=== PATIENT | female | born 1950 | race Caucasian/White ===

== ENCOUNTER 2020-06-24 19:27 | Inpatient (IN) | payer MEDICARE, BC ==
[~2020-06-24] VITALS: Ht 160 cm; Wt 60.0 kg
--- NOTE | 2020-06-24 19:35 | NUR ---
MDat bedside of MSE
--- NOTE | 2020-06-24 19:39 | NUR ---
EKG done at this time
[2020-06-24] MEDS ORDERED: IRBE150T28 PO ×2 (19:51)
[2020-06-24] MEDS ORDERED: OLAN7.5T3 PO (19:51)
[2020-06-24] MEDS ORDERED: MAG30ORA PO (19:51)
[2020-06-24] MEDS ORDERED: ENOX40DI SQ (19:51)
[2020-06-24] MEDS ORDERED: ACET-2154 PO (19:51)
[2020-06-24] MEDS ORDERED: CYAN100T44 PO (19:51)
[2020-06-24] MEDS ORDERED: NITR0.4T48 SL (19:51)
[2020-06-24] MEDS ORDERED: NIFE-35 PO (19:51)
[2020-06-24] MEDS ORDERED: ASPI-605 PO (19:51)
[2020-06-24] MEDS ORDERED: ATOR40TA PO (19:51)
[2020-06-24] MEDS ORDERED: HALO100A2 IM (19:51)
[2020-06-24] MEDS ORDERED: ZOLP12.542 PO (19:51)
[2020-06-24] MEDS ORDERED: LURA40TA PO (19:51)
[2020-06-24] MEDS ORDERED: METO25TA6 PO (19:51)
[2020-06-24] MEDS ORDERED: ASPIRIN 81 MG TAB.CHEW PO ONE (20:15)
[2020-06-24] MEDS ORDERED: ASPIRIN EC 81 MG TABLET.DR PO ONE (20:15)
[2020-06-24] MEDS ORDERED: NITROGLYCERIN 0.4 MG/TAB BOTTLE SL ONE ×2 (20:15→20:16)
[2020-06-24 20:16] LABS: *BILIRUBIN,URIN NEGATIVE (NEGATIVE); *BLOOD, URINE NEGATIVE (NEGATIVE); *CLARITY,URINE CLEAR (CLEAR); *COLOR,URINE YELLOW (YELLOW); *KETONES,URINE NEGATIVE (NEGATIVE); *UROBILINOGEN,URINE 0.2 E.U./dl (NORMAL); LEUKOCYTE ESTERASE ,URINE 2+ (NEGATIVE); NITRITE, URINE NEGATIVE (NEGATIVE); UGLUCOSE NEGATIVE (NEGATIVE)
--- NOTE | 2020-06-24 20:26 | NUR ---
Blood draw at this time, 22g IV placed in left wrist, urine collected and sent to lab, no signs of distress noted from patient, patient confirms chest pain, aspirin and Nitro given per MD orders
[2020-06-24 20:33] LABS: BASOPHILS % (AUTO) 0.3 % (0.0-2.0); EOSINOPHILS % (AUTO) 0.5 % (0.0-7.0); HEMATOCRIT 32.2 % (31.2-41.9); HEMOGLOBIN 10.8 g/dL (10.9-14.3); LYMPHOCYTES % (AUTO) 32.4 % (20.5-51.5); MEAN CORPUSCULAR HEMOGLOBIN 29.6 uug (24.7-32.8); MEAN CORPUSCULAR HGB CONC 34 g/dL (32.3-35.6); MEAN CORPUSCULAR VOLUME 88.2 fL (75.5-95.3); MONOCYTES # (AUTO) 0.6 K/uL (2.0-10.0); MONOCYTES % (AUTO) 9.8 % (0.0-11.0); NEUTROPHILS # (AUTO) 3.6 K/uL (1.8-8.9); PLATELET COUNT (AUTO) 236 K/uL (179-408); RED BLOOD CELL COUNT(AUTO) 3.65 MIL/uL (3.63-4.92); WHITE BLOOD COUNT (AUTO) 6.3 K/uL (3.8-11.8)
--- NOTE | 2020-06-24 20:33 | NUR ---
patient complaints of chest pain 8/10, no signs of distress noted, vitals WNL
--- NOTE | 2020-06-24 20:35 | NUR ---
patient states chest pain is 6/10 at this time, x2 sublingual Nitros given in total
[2020-06-24 20:42] LABS: CREATININE 0.9 mg/dL (0.6-1.3); POTASSIUM 3.7 mmol/L (3.5-5.1)
--- NOTE | 2020-06-24 20:46 | NUR ---
states pain level is at a 5/10, repeat EKG done at this time
[2020-06-24] MEDS ORDERED: NITROGLYCERIN OINT 1 GM PACKET TP ONE ×2 (20:51→21:00)
[2020-06-24 20:55] LABS: BILIRUBIN,DIRECT 0.2 mg/dL (0.0-0.2); BILIRUBIN,TOTAL 0.5 mg/dL (0.2-1.0); TOTAL PROTEIN, SERUM 6.7 g/dL (6.4-8.2)
--- NOTE | 2020-06-24 20:59 | NUR ---
x3 nitro sublingal given per MD orders, patient noted periodically rinsing mouth with water and spitting into belonging bag, rates current chest pain level 5/10
[2020-06-24 22:00] LABS: BACTERIA,URINE FEW /HPF (NONE SEEN); RBC,URINE 0-3 /HPF (0-3); SQUAMOUS EPITHELIAL CELL,UR FEW /HPF (NONE SEEN); WBC,URINE 20-50 /HPF (0-3)
[2020-06-24 22:18] VITALS: BP 139/71
--- NOTE | 2020-06-24 22:20 | NUR ---
Pt. admitted to Telemetry , under care of Dr.m Vsáquez Belongs List completed and all belongings sent with patient [address]
--- NOTE | 2020-06-24 22:21 | NUR ---
RECEIVED PT FROM ER VIA [facility]. UNDER THE CARE OF DR. LINDSAY. 1:1 SITTER FOR SAFETY. PT ON 5150. ADMISSION PROCESS AND CARE PLAN INITIATED. HALF-WAY ASSESSMENT DONE. PT SKIN ISSUES PUT ON THE SKIN ASSESSMENT. SAFETY AND COMFORT PROVIDED. WILL CONTINUE TO MONITOR.
--- NOTE | 2020-06-24 23:25 | NUR ---
P/C PLACED TO NOTIFY DR. Lonnie LINDSAY,REGARDING ADMISSION ORDERS FOR PT.,
[2020-06-24] MEDS ORDERED: HYDROCODONE/APAP 5-325MG TABLET PO PRN (23:30)
[2020-06-24] MEDS ORDERED: ONDANSETRON 4 MG/2 ML VIAL IV PRN (23:30)
[2020-06-24] MEDS ORDERED: Medication Not On Formulary EA (Zolpidem Tartrate 12.5 MG) PO PRN (23:30)
[2020-06-24] MEDS ORDERED: NITROGLYCERIN 0.4 MG/TAB BOTTLE SL PRN (23:30)
[2020-06-24] MEDS ORDERED: MAGNESIUM HYDROXIDE 30 ML LIQUID UDC PO PRN (23:30)
[2020-06-24] MEDS ORDERED: ZOLPIDEM 5 MG TABLET PO PRN (23:30)
[2020-06-24] MEDS ORDERED: Z GUARD REMEDY PASTE 57 GM TUBE TOP PRN (23:30)
[2020-06-24] MEDS ORDERED: ACETAMINOPHEN 325 MG TABLET PO PRN ×2 (23:30)
[2020-06-24] MEDS ORDERED: MAG HYDROX/AL HYDROX/SIMETH 30 ML LIQUID UDC PO PRN (23:30)
[2020-06-25] MEDS: IV 1/2NS 1000 ML 1,000 ML IV PRN ×2 (00:30→14:42)
[2020-06-25] MEDS ORDERED: CEFTRIAXONE /D5W 50ML IVPB **ER PYXIS IV ONE (00:34)
[2020-06-25] MEDS ORDERED: CEFTRIAXONE 1 G in IV DEXTROSE 5% 50 ML IV SCH (01:00)
[2020-06-25 04:00] VITALS: BP 113/57
[2020-06-25 06:20] LABS: BASOPHILS % (AUTO) 0.2 % (0.0-2.0); EOSINOPHILS % (AUTO) 0.4 % (0.0-7.0); HEMATOCRIT 29.7 % (31.2-41.9); HEMOGLOBIN 10.1 g/dL (10.9-14.3); LYMPHOCYTES # (AUTO) 1.6 K/uL (20.0-40.0); LYMPHOCYTES % (AUTO) 27.5 % (20.5-51.5); MEAN CORPUSCULAR HEMOGLOBIN 29.8 uug (24.7-32.8); MEAN CORPUSCULAR HGB CONC 34 g/dL (32.3-35.6); MEAN CORPUSCULAR VOLUME 87.4 fL (75.5-95.3); MONOCYTES # (AUTO) 0.4 K/uL (2.0-10.0); MONOCYTES % (AUTO) 7.2 % (0.0-11.0); NEUTROPHILS # (AUTO) 3.7 K/uL (1.8-8.9); NEUTROPHILS % (AUTO) 64.7 % (38.5-71.5); PLATELET COUNT (AUTO) 231 K/uL (179-408); WHITE BLOOD COUNT (AUTO) 5.7 K/uL (3.8-11.8)
--- NOTE | 2020-06-25 06:22 | NUR ---
PT SLEPT 1H 45 MINUTES. PT CONFUSED. PT ASKING FOR HER PURSE WHICH IS NOT ON HER BELONGING LIST. PT STATING SHE'S IN [facility]. REORIENTATION NEEDED FOR THE PT. SITTER AT BEDSIDE FOR SAFETY. PRESCRIBED MEDICATION GIVEN AND PT TOLERATED IT WELL. PT GIVEN [place] PR[place] 0102H [place] 0219H PER DR PRESCRIBED. PT HAVING EPISODE OF HEADACHE.PT TOLERATED IT WELL. SAFETY AND COMFORT PROVIDED. ALL NEEDS ARE MET. WILL ENDORSE TO INCOMING NURSE.
[2020-06-25 06:40] LABS: BILIRUBIN,TOTAL 0.4 mg/dL (0.2-1.0); CREATININE 0.9 mg/dL (0.6-1.3); MAGNESIUM 1.9 mg/dL (1.8-2.4); PHOSPHOROUS 4.2 mg/dL (2.5-4.9); POTASSIUM 3.5 mmol/L (3.5-5.1)
--- NOTE | 2020-06-25 07:45 | NUR ---
Received patient resting in bed. No sign of respiratory distress noted at this time, patient is saturating well on room air. Patient on 5150 hold with a 1:[address] IV is left wrist 22 gauge IV that is patent and intact. Safety precautions in place, bed in lowest position, and locked with alarm activated. Patient call light and personal belongings are within reach. Will continue to monitor and observe.
[2020-06-25 08:16] VITALS: BP 126/58
[2020-06-25] MEDS: OLANZAPINE 5 MG TABLET PO SCH ×2 (08:16→09:14)
--- NOTE | 2020-06-25 08:20 | NUR ---
Patient refused all medications, she says they are not the ones she takes and that they are making her weak.
[2020-06-25] MEDS ORDERED: POTASSIUM CHLORIDE 20 MEQ POWDER PACKET PO ONE (08:30)
[2020-06-25] MEDS ORDERED: LOSARTAN POTASSIUM 25 MG TABLET PO SCH (09:00)
[2020-06-25] MEDS ORDERED: NIFEdipine XL 30 MG TABSR PO SCH ×2 (09:00)
[2020-06-25] MEDS ORDERED: ASPIRIN EC 81 MG TABLET.DR PO SCH (09:00)
[2020-06-25] MEDS ORDERED: ENOXAPARIN SODIUM 40 MG/0.4 ML DISP.SYRIN SQ SCH (09:00)
[2020-06-25] MEDS ORDERED: CYANOCOBALAMIN 100 MCG TABLET PO SCH (09:00)
[2020-06-25] MEDS ORDERED: ISOSORBIDE MONONITRATE 30 MG TAB.SR.24H PO SCH (09:00)
[2020-06-25] MEDS ORDERED: METOPROLOL TARTRATE 25 MG TABLET PO SCH (09:00)
[2020-06-25] MEDS ORDERED: Medication Not On Formulary EA (Irbesartan (Avapro) 75 MG) PO SCH (09:00)
[2020-06-25] MEDS: METOPROLOL TARTRATE 25 MG TABLET PO SCH ×2 (09:14→17:19)
[2020-06-25 11:56] VITALS: BP 103/50
[2020-06-25] MEDS ORDERED: SULFAMETH/TRIMETH 800/160 MG TABLET PO SCH (12:45)
[2020-06-25] MEDS ORDERED: ENOX40DI SQ (15:20)
[2020-06-25] MEDS ORDERED: CYAN100T44 PO (15:20)
[2020-06-25] MEDS ORDERED: NIFE30TA2 PO (15:20)
[2020-06-25] MEDS ORDERED: ATOR40TA PO (15:20)
[2020-06-25] MEDS ORDERED: Nitroglycerin Sl SL (15:20)
[2020-06-25] MEDS ORDERED: METO25TA6 PO (15:20)
[2020-06-25] MEDS ORDERED: OLAN5TAB3 PO (15:20)
[2020-06-25] MEDS ORDERED: Isosorbide Mononitrate PO (15:20)
[2020-06-25] MEDS ORDERED: Sulfameth/Trimeth 800/160 Mg PO (15:20)
[2020-06-25] MEDS ORDERED: ASPI-618 PO (15:20)
[2020-06-25] MEDS ORDERED: LURASIDONE HCL PO (15:20)
[2020-06-25 15:56] VITALS: BP 100/46
[2020-06-25 17:19] VITALS: BP 109/60
--- NOTE | 2020-06-25 18:24 | NUR ---
Patient discharge and is prepared and ready to be transferred to the MHU. Patient is in stable condition and resting comfortably in bed. She is saturating well on room air. Tele monitoring has been discontinued. Patient has IV in the left wrist 20 gauge that is intact and patent running 1/2 NS at 75 ml/hr. safety precautions still in place bed in the lowest position and locked with alarm activated. She also has a 1:1n sitter. Call light and belongings are all within reach. Will continue to monitor until turned over to the oncoming nurse.
--- NOTE | 2020-06-25 18:48 | NUR ---
Called to give report to MHU but was told that patient will be admitted to MS 3rd floor as over flow GPS. Will relay findings in change of shift report to oncoming nurse.
[2020-06-25] MEDS ORDERED: ATORVASTATIN 40 MG TABLET PO SCH (21:00)
[2020-06-26] MEDS ORDERED: HYDR-4384 PO (07:15)
[2020-06-26] MEDS ORDERED: SULF1TAB48 PO (07:15)
[2020-06-26] MEDS ORDERED: NITR0.4T SL (07:50)
[2020-06-26] MEDS ORDERED: ISOS30TA6 PO (07:50)
== END 2020-06-25 20:00 | DRG 313 ==
LOC: ER 19:27 → TELE3 21:59 → MEDSURG3 06-25 19:52
PROVIDERS: ADMIT Nurse Practitioner Acute Care; ATTEND Nurse Practitioner Acute Care
DX: R07.89 Other chest pain (principal); N39.0 Urinary tract infection, site not specified; I25.10 Atherosclerotic heart disease of native coronary artery without angina pectoris; E78.5 Hyperlipidemia, unspecified; E11.9 Type 2 diabetes mellitus without complications; Z79.899 Other long term (current) drug therapy; F31.9 Bipolar disorder, unspecified; D64.9 Anemia, unspecified; Z73.6 Limitation of activities due to disability; I10 Essential (primary) hypertension; F20.9 Schizophrenia, unspecified
CPT/HCPCS: 36415; 70030-TC; 71045; 83735; 84100; 85025; 85730; 87086; 93005; 93307; A4663; G0378; J0696; J1650; J3490; J7060

== ENCOUNTER 2020-06-25 20:44 | Inpatient (IN) | payer MEDICARE, BC ==
[~2020-06-25] VITALS: Ht 160 cm; Wt 58.1 kg
[~2020-06-25 20:44] MED LIST: ACET-2154 PO; ASPI-605 PO; ASPI-618 PO; ATOR40TA PO; CYAN100T44 PO; ENOX40DI SQ; HALO100A2 IM; IRBE150T28 PO; Isosorbide Mononitrate PO; LURA40TA PO; LURASIDONE HCL PO; MAG30ORA PO; METO25TA6 PO; NIFE-35 PO; NIFE30TA2 PO; NITR0.4T48 SL; Nitroglycerin Sl SL; OLAN5TAB3 PO; OLAN7.5T3 PO; Sulfameth/Trimeth 800/160 Mg PO; ZOLP12.542 PO
[2020-06-25] MEDS ORDERED: MAGNESIUM HYDROXIDE 30 ML LIQUID UDC PO PRN (21:30)
[2020-06-25] MEDS ORDERED: MAG HYDROX/AL HYDROX/SIMETH 30 ML LIQUID UDC PO PRN (21:30)
[2020-06-25] MEDS ORDERED: ACETAMINOPHEN 325 MG TABLET PO PRN (21:30)
[2020-06-25 22:07] VITALS: BP 107/49
--- NOTE | 2020-06-26 01:06 | NUR ---
Received pt resting in bed. AAO x2-3. No acute distress noted. Denies pain/ discomfort. Denies SI/HI. Dr. Palafox seen pt. 1:1 sitter at bedside. Safety measures maintained. Call light and personal items within reach. Will continue to monitor.
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
[2020-06-26 07:11] LABS: BILIRUBIN,TOTAL 0.5 mg/dL (0.2-1.0); CREATININE 1.1 mg/dL (0.6-1.3); POTASSIUM 4.6 mmol/L (3.5-5.1); TOTAL PROTEIN, SERUM 6.4 g/dL (6.4-8.2)
[2020-06-26] MEDS ORDERED: HYDR-4384 PO (07:15)
[2020-06-26] MEDS ORDERED: SULF1TAB48 PO (07:15)
[2020-06-26] MEDS ORDERED: ISOS30TA6 PO (07:50)
[2020-06-26] MEDS ORDERED: NITR0.4T SL (07:50)
[2020-06-26 08:00] VITALS: BP 134/65
--- NOTE | 2020-06-26 08:00 | NUR ---
Received patient resting in bed. No sign of respiratory distress noted, patient is saturating well on room air. n IV in left wrist, intact and patent. Patient is awake, alert and oriented time 1-2. Patient is now admitted to GPS Psych overflow. Patient on a 5150 hold and as been renewed. Patient has a 1:1 sitter. Safety precautions are in place. Will continue to monitor and observe.
[2020-06-26] MEDS: risperiDONE 1 MG TABLET PO SCH ×2 (08:08→20:33)
--- NOTE | 2020-06-26 08:30 | NUR ---
Patient refused risperidone, says "she will not take any psych meds. made aware.
[2020-06-26] MEDS ORDERED: LURASIDONE HCL PO SCH (09:00)
[2020-06-26] MEDS ORDERED: NITROGLYCERIN 0.4 MG/TAB BOTTLE SL PRN (09:00)
[2020-06-26] MEDS ORDERED: OLANZAPINE 5 MG TABLET PO SCH (09:00)
[2020-06-26] MEDS ORDERED: HYDROCODONE/APAP 5-325MG TABLET PO PRN (09:00)
[2020-06-26] MEDS: CYANOCOBALAMIN 100 MCG TABLET PO SCH (09:50)
[2020-06-26] MEDS: SULFAMETH/TRIMETH 800/160 MG TABLET PO SCH ×2 (09:51→20:29)
[2020-06-26] MEDS: ASPIRIN EC 81 MG TABLET.DR PO SCH (09:51)
[2020-06-26] MEDS: NIFEdipine XL 30 MG TABSR PO SCH (09:52)
[2020-06-26] MEDS: METOPROLOL TARTRATE 25 MG TABLET PO SCH ×2 (09:53→20:29)
[2020-06-26] MEDS: ISOSORBIDE MONONITRATE 30 MG TAB.SR.24H PO SCH (09:54)
[2020-06-26] MEDS: ENOXAPARIN SODIUM 40 MG/0.4 ML DISP.SYRIN SQ SCH (09:55)
--- NOTE | 2020-06-26 10:28 | NUR ---
Social Work Family Contact: electrical linesworker spoke with patient's Wili ([phone]) and is involved in patient's care. Per , he stated that he is the DPOA and will fax documents once he is in town. This technical document writer discussed treatment plan and discharge plan.
--- NOTE | 2020-06-26 10:28 | NUR ---
Social Work Initial Discharge Plan: Patient currently resides at [address] [facility] [address], [place] [address]; ([phone]) who lives with Wili ([phone]) and is involved in patient's care. Per , he stated that he is the DPOA and will send this film writer documents. Per , he would want patient back home. food counter worker will work with the MD and treatment team to coordinatre proper discharge plan.
--- NOTE | 2020-06-26 10:32 | NUR ---
Social Work Firearms Report: Supervisor Covering And Lining completed and submitted a [employer] firearms report for 5150 grave disability certification. A copy of report has been placed in patient chart.
[2020-06-26 12:13] VITALS: BP 119/75
[2020-06-26 16:00] VITALS: BP 125/68
--- NOTE | 2020-06-26 18:11 | NUR ---
Patient is resting in bed, no sign of distress noted. patient saturating well on room air. All medications given as ordered except for Psych medication refused by patient. Patient is still on 5150 an has a 1:1 sitter. IV is still in left wrist 22 gauge. Safety precautions in place. Will endorse patient over to oncoming nurse
--- NOTE | 2020-06-26 19:30 | NUR ---
RECEIVED PT IN NO ACUTE DISTRESS. SITTER AT BEDSIDE FOR SAFETY. PT PLEASANT WHEN APPROACHED. PT KEEP ON CALLING HER SON ON THE PHONE. SAFETY AND COMFORT PROVIDED. WILL CONTINUE TO MONITOR.
[2020-06-26 20:00] VITALS: BP 134/56
[2020-06-26] MEDS: ATORVASTATIN 40 MG TABLET PO SCH (20:29)
--- NOTE | 2020-06-26 22:36 | NUR ---
PT REFUSED TO TAKE HIS RISPERDAL MEDICATION. DR. CEDILLO SEEN THE PT AND AWARE OF THE PT NOT TAKING HER PSYCH MEDS.
[2020-06-26] MEDS: TEMAZEPAM 7.5 MG CAPSULE PO PRN (22:41)
--- NOTE | 2020-06-26 22:51 | NUR ---
WHEN I WAS GOING TO GIVE HER SLEEPING MEDICATION SHE REFUSED IT SAYING SHE ONLY TAKE AMBIEN MEDICATION. RESTORIL MEDICATION WASTED IN PYXIS WITH ANOTHER RN WITNESS.
--- NOTE | 2020-06-27 06:23 | NUR ---
PT SLEPT 5 HOURS. SITTER AT BEDSIDE FOR SAFETY. PT REFUSED HER RISPERDAL. DR. CEDILLO AWARE. . DR GINI LANDIN FOR THE PT. PT REFUSED HER SLEEPING MEDICATION. SHE SAID SHE IS ONLY TAKING AMBIEN. PRESCRIBED MEDICATION GIVEN AND PT TOLERATED IT WELL. SAFETY AND COMFORT PROVIDED. WILL ENDORSE TO INCOMING NURSE FOR CONTINUITY OF CARE.
[2020-06-27 07:19] VITALS: BP 100/67
--- NOTE | 2020-06-27 08:00 | NUR ---
received pt. resting in bed alert oriented x2. pt. denies pain/ discomfort. pt. denies sob/ difficulty breathing. pt. on 5250 hold 1:1 sitter at bedside. safety measures in place. will continue to monitor pt.
[2020-06-27] MEDS: risperiDONE 1 MG TABLET PO SCH ×2 (09:00→20:41)
[2020-06-27] MEDS: NIFEdipine XL 30 MG TABSR PO SCH (09:00)
[2020-06-27] MEDS: SULFAMETH/TRIMETH 800/160 MG TABLET PO SCH ×2 (09:00→20:40)
[2020-06-27] MEDS: ASPIRIN EC 81 MG TABLET.DR PO SCH (09:00)
[2020-06-27] MEDS: CYANOCOBALAMIN 100 MCG TABLET PO SCH (09:00)
[2020-06-27] MEDS: ISOSORBIDE MONONITRATE 30 MG TAB.SR.24H PO SCH (09:00)
[2020-06-27] MEDS: METOPROLOL TARTRATE 25 MG TABLET PO SCH ×2 (09:01→20:41)
[2020-06-27] MEDS: ENOXAPARIN SODIUM 40 MG/0.4 ML DISP.SYRIN SQ SCH (09:01)
--- NOTE | 2020-06-27 09:17 | NUR ---
pt. refused risperidone AM medication. Educated pt. on risks and benefits pt. still refused.
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
[2020-06-27 14:00] VITALS: BP 98/55
--- NOTE | 2020-06-27 14:15 | NUR ---
Social Work Family Contact: telecommunications linesworker spoke with patient's Wili ([phone]) who stated that patient has been calling and stating that she is at the hospital to get a mammogram. Per , he stated that he is the DPOA. Patient's son Shaun ([phone]) sent this telegraphic typewriter operator chief DPOA documents. This telegraphic typewriter operator chief placed in the chart. Per Hushand and son, they will notify this telegraphic typewriter operator chief if patient will return back home or will require a SNF. This telegraphic typewriter operator chief will follow-up.
--- NOTE | 2020-06-27 15:09 | NUR ---
Social Work Coordination of Care: back up worker spoke with patient's son Shaun ([phone]) and Leonardo ([phone]) DPOA stated that they would want pt to transition to a alf facility upon discharge. This scientific writer faxed Richard from [facility] to review patient's clinicals.
--- NOTE | 2020-06-27 18:24 | NUR ---
pt. took all medication today besides psych medication risperidone and refuses PRN ativan. pt. had some episodes of agitation reoriented pt. and calmed pt. down. safety measures in place. 1:1 sitter for safety. will endorse to pm nurse
--- NOTE | 2020-06-27 19:30 | NUR ---
RECEIVED PT AWAKE, ALERT AND ORIENTEDX3. PLEASANT WHEN APPROACHED. SITTER AT BEDSIDE FOR SAFETY. PT IN NO ACUTE DISTRESS. SAFETY AND COMFORT PROVIDED. WILL CONTINUE TO MONITOR.
[2020-06-27 20:12] VITALS: BP 96/56
[2020-06-27] MEDS: ATORVASTATIN 40 MG TABLET PO SCH (20:41)
--- NOTE | 2020-06-27 20:48 | NUR ---
PT REFUSED HER RISPERDAL MEDICATION. NON-ADMINISTERED METROPOLOL BECAUSE OF BLOOD PRESSURE OF 96/56 . WILL CONTINUE TO MONITOR.
[2020-06-27] MEDS: TEMAZEPAM 7.5 MG CAPSULE PO PRN (21:48)
--- NOTE | 2020-06-28 06:20 | NUR ---
PT SLEPT 5 HOURS AND 30 MINUTES. SITTER FOR SAFETY. PRESCRIBED MEDICATION GIVEN AND PT TOLERATED IT WELL. SAFETY AND COMFORT PROVIDED. DR. CEDILLO SEEN THE PT. PT PARANOID AND DELUSIONAL. NEEDS REORIENTATION. PT REFUSED HER RISPERDAL. DR AWARE. ALL NEEDS ARE MET. WILL ENDORSE TO INCOMING NURSE FOR CONTINUITY OF CARE.
[2020-06-28 07:25] VITALS: BP 123/57
[2020-06-28] MEDS: risperiDONE 1 MG TABLET PO SCH ×2 (09:00→20:05)
[2020-06-28] MEDS: CYANOCOBALAMIN 100 MCG TABLET PO SCH (09:16)
[2020-06-28] MEDS: SULFAMETH/TRIMETH 800/160 MG TABLET PO SCH ×2 (09:16→20:08)
[2020-06-28] MEDS: ISOSORBIDE MONONITRATE 30 MG TAB.SR.24H PO SCH (09:17)
[2020-06-28] MEDS: ASPIRIN EC 81 MG TABLET.DR PO SCH (09:17)
[2020-06-28] MEDS: NIFEdipine XL 30 MG TABSR PO SCH (09:17)
[2020-06-28] MEDS: METOPROLOL TARTRATE 25 MG TABLET PO SCH ×2 (09:18→20:05)
[2020-06-28] MEDS: ENOXAPARIN SODIUM 40 MG/0.4 ML DISP.SYRIN SQ SCH (09:19)
--- NOTE | 2020-06-28 10:00 | NUR ---
Pt received this am.Pt remains awake,alert.Sitter 1:1 for safety at bedside.Pt refused risperdal medication Pt was educated on risks and benefits of medication.Still refusing.Will continue to monitor.
--- NOTE | 2020-06-28 13:11 | NUR ---
Social Work Family Contact: travelers' aid worker spoke with Patient's son Shaun ([phone]) and JAZ ananth Wili ([phone]) agreed with SNF and that he is accepted at [facility].
[2020-06-28 15:53] VITALS: BP 99/58
--- NOTE | 2020-06-28 16:06 | NUR ---
Called ,left message regarding pt had Riese hearing today.Updated on pt condition.
[2020-06-28 19:37] VITALS: BP 99/57
[2020-06-28] MEDS: ATORVASTATIN 40 MG TABLET PO SCH (20:08)
--- NOTE | 2020-06-28 20:15 | NUR ---
RECEIVED PATIENT AWAKE IN BED. A/O X3. HYPERVERBAL. DENIES ANY PAIN OR DISCOMFORT. VSS. PATIENT COMPLIANT WITH TAKING HS MEDS, BUT REFUSED TO TAKE PO RISPERDAL. WAITING FOR DR. CEDILLO. PROVIDED SAFE AND THERAPEUTIC ENVIRONMENT. ALL NEEDS ATTENDED. 1:1 SITTER/NURSE AT BEDSIDE.
[2020-06-28] MEDS ORDERED: HALOPERIDOL 1 MG TABLET PO ONE (21:58)
--- NOTE | 2020-06-28 22:00 | NUR ---
DR. CEDILLO CAME TO SEE PATIENT AND EXPLAINED MEDICATIONS. PATIENT VERBALIZED UNDERSTANDING. ALL NEEDS ATTENDED.
[2020-06-28] MEDS ORDERED: HALOPERIDOL 0.5 MG TABLET ONE (22:37)
--- NOTE | 2020-06-28 22:40 | NUR ---
CHANGED RISPERDAL TO HALDOL. PATIENT COMPLIANT WITH TAKING PO MEDICATION.
[2020-06-28] MEDS: TEMAZEPAM 7.5 MG CAPSULE PO PRN (23:20)
--- NOTE | 2020-06-29 05:34 | NUR ---
PATIENT SLEPT WELL THROUGHOUT THE NIGHT. SLEPT 7 HOUR AND 30 MINUTES. ALL NEEDS ATTENDED.
--- NOTE | 2020-06-29 07:15 | NUR ---
RECEIVED PATIENT AWAKE IN BED. A/O X3. HYPERVERBAL. DENIES ANY PAIN OR DISCOMFIT . PROVIDED SAFE AND THERAPEUTIC ENVIRONMENT. ALL NEEDS ATTENDED. 1:1 SITTER/NURSE AT BEDSIDE.
[2020-06-29 07:49] VITALS: BP 110/64
[2020-06-29] MEDS: ISOSORBIDE MONONITRATE 30 MG TAB.SR.24H PO SCH (08:01)
[2020-06-29] MEDS: NIFEdipine XL 30 MG TABSR PO SCH (08:01)
[2020-06-29] MEDS: ASPIRIN EC 81 MG TABLET.DR PO SCH (08:01)
[2020-06-29] MEDS: METOPROLOL TARTRATE 25 MG TABLET PO SCH ×2 (08:01→20:19)
[2020-06-29] MEDS: CYANOCOBALAMIN 100 MCG TABLET PO SCH (08:01)
[2020-06-29] MEDS: HALOPERIDOL 1 MG TABLET PO SCH ×4 (08:03→16:28)
[2020-06-29] MEDS: ENOXAPARIN SODIUM 40 MG/0.4 ML DISP.SYRIN SQ SCH (08:07)
[2020-06-29 13:18] VITALS: BP 98/52
--- NOTE | 2020-06-29 14:37 | NUR ---
PT SEEN BY DR MCKEON NO NEW ORDERS RECEIVED
[2020-06-29 16:21] VITALS: BP 120/57
[2020-06-29] MEDS: HALOPERIDOL LACTATE 5 MG/1 ML VIAL IM PRN (16:28)
--- NOTE | 2020-06-29 16:30 | NUR ---
pt refused Haldol 1mg po per Md orders .Haldol 1mg im given
[2020-06-29 19:21] VITALS: BP 137/55
[2020-06-29] MEDS: ATORVASTATIN 40 MG TABLET PO SCH (20:11)
[2020-06-29] MEDS: LORAZEPAM 1 MG TABLET PO PRN (20:25)
[2020-06-29] MEDS: TEMAZEPAM 7.5 MG CAPSULE PO PRN (21:20)
--- NOTE | 2020-06-29 22:30 | NUR ---
report given to Danielle in, MHU. transferred patient with JEFFREY Leroy safety. chart and belonging given. patient in stable condition. v/s stable. no s/s of acute distress. compliant with medications.
--- NOTE | 2020-06-30 00:06 | NUR ---
GPS/RN: [facility]B. REPORT RECEIVED FROM DENNYS. PT A/OX2, ABLE TO COMMUNICATE NEEDS VERBALLY AND SPEAK CLEAR MALTESE. PER REPORT PT NONE COMPLIANT WITH PO MEDICATIONS AND HALDOL IM GIVEN ALREADY. ALSO PT TOOK NITRO SUBLINGUAL AT 2035 PER C/O CHEST PAIN.. NO C/O PAIN AT THIS TIME. PT NOW ASLEEP WITH NOTED EVEN BREATHING. WILL INITIATE Q/15MINS HEAD COUNT PER SAFETY.
[2020-06-30 07:30] VITALS: BP 123/65
[2020-06-30] MEDS: ASPIRIN EC 81 MG TABLET.DR PO SCH (09:37)
[2020-06-30] MEDS: CYANOCOBALAMIN 100 MCG TABLET PO SCH (09:37)
[2020-06-30] MEDS: HALOPERIDOL 1 MG TABLET PO SCH ×3 (09:37→17:00)
[2020-06-30] MEDS: METOPROLOL TARTRATE 25 MG TABLET PO SCH ×2 (09:38→20:31)
[2020-06-30] MEDS: ISOSORBIDE MONONITRATE 30 MG TAB.SR.24H PO SCH (09:38)
[2020-06-30] MEDS: NIFEdipine XL 30 MG TABSR PO SCH (09:38)
--- NOTE | 2020-06-30 10:44 | NUR ---
Patent is AAO x 2-3, no acute distress noted. Vital signs stable. Patient noted being paranoid regarding scheduled medications and stated she will not take any "psych pills". explained to patient medication therapy and 's order and patient agreed to take meds. Patient also seemed in denial of diagnosis stating she does not have any problem up on assessment. Patient denies any SI. Safety measures in place, needs attended and will continue with care.
[2020-06-30] MEDS: HALOPERIDOL LACTATE 5 MG/1 ML VIAL IM PRN ×2 (13:45→17:49)
--- NOTE | 2020-06-30 14:00 | NUR ---
PATIENT REFUSED 1PM HALDOL 1MG PILL, STATING "I DON'T TAKE ANY PSYCHIATRIC PILLS, I HAVE TOLD THAT TO THE DRBautista ALREADY, I AM NOT TAKING NO PILLS" EXPLAINED TO PATIENT DR. KWOK AND THAT INJECTION NEEDS TO BE GIVEN IF PO MEDS WERE REFUSED. PATIENT STILL ARGUED, RN AUTOGLAZIER MADE AWARE, SECURITY CALLED , PATIENT ASSISTED BACK TO ROOM BY SECURITY AND 3 LICENSED NURSES. PATIENT AGREED FOR INJECTION, HALDOL 1MG IM TID PRN INJECTION ADMINISTERED AND TOLERATED WELL. SITE INTACT, NO BLEEDING NOTED AND WILL CONTINUE WITH CARE.
[2020-06-30 16:00] VITALS: BP 133/59
--- NOTE | 2020-06-30 18:09 | NUR ---
Patient refused routine 5pm Haldol medication; patient verbalized would prefer Haldol PRN injection. Haldol 1mg IM TID PRN injection given as ordered, patient compliant with med and tolerated well. NO agitation noted. No acute distress noted. VS stable, safety measures in place and will continue with care.
--- NOTE | 2020-06-30 19:19 | NUR ---
Patient resting in bed at this time. No acute distress noted. Denies any SI, safety measures in place and will continue with care.
[2020-06-30 20:00] VITALS: BP 119/60
[2020-06-30] MEDS: ATORVASTATIN 40 MG TABLET PO SCH (20:30)
[2020-06-30] MEDS: LORAZEPAM 1 MG TABLET PO PRN (20:32)
--- NOTE | 2020-07-01 00:29 | NUR ---
Received patient in the hallway asking " When I go home, how will I get there ? My is waiting for me and has my keys". Chili Pepper Grinder explained the discharge procedure to the patient but reinforcement is needed. Patient stated that " There is nothing wrong with my head, I will not take medications for my brain". This patient is paranoid and non compliant with medications MD is aware and the patient has a RIESE. Continuing to educate and encourage compliance with medications and treatment. Monitoring for safety and reorientation provided as needed.
[2020-07-01 07:30] VITALS: BP 131/60
[2020-07-01] MEDS: ASPIRIN EC 81 MG TABLET.DR PO SCH (09:00)
[2020-07-01] MEDS: CYANOCOBALAMIN 100 MCG TABLET PO SCH (09:00)
[2020-07-01] MEDS: ISOSORBIDE MONONITRATE 30 MG TAB.SR.24H PO SCH (09:00)
[2020-07-01] MEDS: NIFEdipine XL 30 MG TABSR PO SCH (09:00)
[2020-07-01] MEDS: METOPROLOL TARTRATE 25 MG TABLET PO SCH ×2 (09:00→20:35)
[2020-07-01] MEDS: HALOPERIDOL 1 MG TABLET PO SCH ×3 (09:00→20:35)
[2020-07-01] MEDS: HALOPERIDOL LACTATE 5 MG/1 ML VIAL IM PRN (10:21)
[2020-07-01] MEDS ORDERED: HALOPERIDOL LACTATE 5 MG/1 ML VIAL IM PRN (10:45)
[2020-07-01 16:00] VITALS: BP 127/62
[2020-07-01] MEDS: ATORVASTATIN 40 MG TABLET PO SCH (20:34)
[2020-07-01 20:46] VITALS: BP 150/58
[2020-07-01] MEDS: TEMAZEPAM 7.5 MG CAPSULE PO PRN (21:08)
[2020-07-02] MEDS: LORAZEPAM 1 MG TABLET PO PRN ×4 (03:17→20:49)
--- NOTE | 2020-07-02 05:11 | NUR ---
GPS; Patient was unwilling to take any medications at the beginning of the shift last night. After some encouragement and education, patient complied and took the medications by mouth in order to bypass the injection. This patient is delusional, and believes that " There is nothing wrong with my mind. My keeps wanting to kill me. He has killed someone. Can I go home right now?" During the night patient was up pacing the halls and slamming the bathroom door, waking up the roommate. Engraver T[employer] Mold medicated patient for anxiety but the medication had little effect. Engraver T[employer] Mold redirected patient and provided reality based conversation but patient definitely needs reinforcement of the situation and plan of care. Monitoring patient for safety, compliance and increase in delusional thinking.
[2020-07-02 07:30] VITALS: BP 137/70
[2020-07-02] MEDS: HALOPERIDOL 1 MG TABLET PO SCH ×3 (08:26→20:38)
[2020-07-02] MEDS: ISOSORBIDE MONONITRATE 30 MG TAB.SR.24H PO SCH (08:26)
[2020-07-02] MEDS: ASPIRIN EC 81 MG TABLET.DR PO SCH (08:26)
[2020-07-02] MEDS: CYANOCOBALAMIN 100 MCG TABLET PO SCH (08:26)
[2020-07-02] MEDS: NIFEdipine XL 30 MG TABSR PO SCH (08:27)
[2020-07-02] MEDS: METOPROLOL TARTRATE 25 MG TABLET PO SCH ×2 (08:28→20:39)
[2020-07-02 15:24] VITALS: BP 105/59
[2020-07-02 20:04] VITALS: BP 108/62
[2020-07-02] MEDS: ATORVASTATIN 40 MG TABLET PO SCH (20:38)
[2020-07-02] MEDS: TEMAZEPAM 7.5 MG CAPSULE PO PRN (20:49)
--- NOTE | 2020-07-03 00:24 | NUR ---
awake alert and oriented upon initial rounds. VSS denies any pain nor any discomfort. tolerated po meds well. no signs of agitation nor any restlessness noted. Making needs known. compliant with meds
--- NOTE | 2020-07-03 06:28 | NUR ---
End of shift notes: Slept well. No acute distress noted. VSS. All needs met and attended. Voiding without difficulty.
[2020-07-03 07:30] VITALS: BP 115/60
[2020-07-03] MEDS: CYANOCOBALAMIN 100 MCG TABLET PO SCH (08:31)
[2020-07-03] MEDS: METOPROLOL TARTRATE 25 MG TABLET PO SCH ×2 (08:32→20:08)
[2020-07-03] MEDS: HALOPERIDOL 1 MG TABLET PO SCH ×3 (08:32→20:08)
[2020-07-03] MEDS: ASPIRIN EC 81 MG TABLET.DR PO SCH (08:32)
[2020-07-03] MEDS: ISOSORBIDE MONONITRATE 30 MG TAB.SR.24H PO SCH (08:32)
[2020-07-03] MEDS: NIFEdipine XL 30 MG TABSR PO SCH (08:33)
--- NOTE | 2020-07-03 14:36 | NUR ---
PATIENT COMPLIANT WITH ALL PO MEDICATION ,PROVIDED SAFE AND THERAPEUTIC ENVIRONMENT. WILL CONTINUE TO MONITOR AND ASSESS.
[2020-07-03 15:55] LABS: *BILIRUBIN,URIN NEGATIVE (NEGATIVE); *BLOOD, URINE NEGATIVE (NEGATIVE); *CLARITY,URINE CLEAR (CLEAR); *COLOR,URINE YELLOW (YELLOW); *KETONES,URINE NEGATIVE (NEGATIVE); *UROBILINOGEN,URINE 0.2 E.U./dl (NORMAL); LEUKOCYTE ESTERASE ,URINE 1+ (NEGATIVE); NITRITE, URINE NEGATIVE (NEGATIVE); UGLUCOSE NEGATIVE (NEGATIVE)
[2020-07-03 16:08] VITALS: BP 103/56
[2020-07-03 17:22] LABS: BACTERIA,URINE FEW /HPF (NONE SEEN); RBC,URINE NONE SEEN /HPF (0-3); SQUAMOUS EPITHELIAL CELL,UR FEW /HPF (NONE SEEN); WBC,URINE 0-3 /HPF (0-3)
[2020-07-03 20:00] VITALS: BP 135/64
[2020-07-03] MEDS: ATORVASTATIN 40 MG TABLET PO SCH (20:09)
[2020-07-03] MEDS: LORAZEPAM 1 MG TABLET PO PRN (20:09)
[2020-07-03] MEDS: TEMAZEPAM 7.5 MG CAPSULE PO PRN (20:10)
--- NOTE | 2020-07-03 21:18 | NUR ---
awake alert and oriented x4 VSS. Attended to needs. Compliant with meds. No behavioral issues noted. Tolerated all po meds. Needs attended. Will monitor patient.
[2020-07-03 22:00] VITALS: BP 135/69
--- NOTE | 2020-07-04 06:31 | NUR ---
End of shift notes: Quiet night. Slept throughout the shift, Fall precautions maintained. No behavioral issues noted.
[2020-07-04 07:30] VITALS: BP 111/63
--- NOTE | 2020-07-04 07:50 | NUR ---
Patient received in room sleeping, No acute distress noted. VS stable. NO complains of pain at this time and will continue with care.
[2020-07-04] MEDS: CYANOCOBALAMIN 100 MCG TABLET PO SCH (08:41)
[2020-07-04] MEDS: ASPIRIN EC 81 MG TABLET.DR PO SCH (08:41)
[2020-07-04] MEDS: HALOPERIDOL 1 MG TABLET PO SCH ×3 (08:41→20:36)
[2020-07-04] MEDS: METOPROLOL TARTRATE 25 MG TABLET PO SCH ×2 (08:42→20:37)
[2020-07-04] MEDS: ISOSORBIDE MONONITRATE 30 MG TAB.SR.24H PO SCH (08:42)
[2020-07-04] MEDS: NIFEdipine XL 30 MG TABSR PO SCH (08:43)
[2020-07-04] MEDS: LORAZEPAM 1 MG TABLET PO PRN ×2 (08:48→17:08)
--- NOTE | 2020-07-04 09:00 | NUR ---
Patient stated feeling anxious and asked for Ativan. Ativan 1 mg PO Q4hrs PRN administered as ordered.
[2020-07-04 16:00] VITALS: BP 112/61
[2020-07-04] MEDS: CEphaleXIN 500 MG CAPSULE PO SCH (17:01)
--- NOTE | 2020-07-04 19:23 | NUR ---
Patient AAO x 2, able to express needs. No acute distress noted. Patient compliant with medication today, was able to take all ordered PO meds and tolerated well. No aggressive behavior noted. Patient aware of medication therapy. Denies any SI. Patient on ATB therapy of Keflex 500mg PO Q BID for UTI, explained to patient and patient aware; also encouraged patient to drink water. Patient stays in room for most of the shift, participate in activities. Pt. is compliant for most of the care. All other needs attended, safety measures in place and will continue with care.
[2020-07-04 20:00] VITALS: BP 127/69
[2020-07-04] MEDS ORDERED: HALOPERIDOL DECANOATE 50 MG/1 ML AMPUL IM ONE (20:30)
[2020-07-04] MEDS: ATORVASTATIN 40 MG TABLET PO SCH (20:36)
[2020-07-05] MEDS: LORAZEPAM 1 MG TABLET PO PRN (04:35)
--- NOTE | 2020-07-05 05:46 | NUR ---
Received patient in the bed asking for a sleeping pill. PM medications provided and patient was compliant with medications. Change Control Manager did give a sleeping pill later in the night. This patient is fixated on going home and came out to the nurses station multiple times asking details about the discharge process. Information provided and patient slept a total of 6.15 hours. Educated patient on the Haldol Decanoate injection ordered prior to discharge. Patient verbalized understanding. No issues noted at this time. Continuing to monitor patient for safety and provide redirection as needed.
[2020-07-05] MEDS ORDERED: HALOPERIDOL DECANOATE 50 MG/1 ML AMPUL IM SCH (07:00)
[2020-07-05 07:30] VITALS: BP 120/63
--- NOTE | 2020-07-05 08:03 | NUR ---
Social Work Discharge Note: Patient will be discharged to [facility], [facility] [address] [place] [address]; ) via Ambulance transportation at 12PM. Patient Admitting Clerk spoke with Guy Physical Education Specialist at [facility]; ([phone]), who stated patient will be accepted back at facility today. Patients DPOA Wili ([phone]) is aware and agreeable. Patient is alert and oriented x1-2 and is unable to plan for self-care. Patient denies any suicidal or homicidal ideations. Patient is aware and agreeable with discharge plans. Patient will continue to follow-up with (Psychiatrist) Dr. Palafox and (Curb Hop) Dr. Claire at [facility] [address] [place] [address]; ). Patient presents with euthymic mood and congruent affect.
[2020-07-05] MEDS: CEphaleXIN 500 MG CAPSULE PO SCH (09:23)
[2020-07-05] MEDS: ASPIRIN EC 81 MG TABLET.DR PO SCH (09:23)
[2020-07-05] MEDS: HALOPERIDOL 1 MG TABLET PO SCH (09:23)
[2020-07-05] MEDS: CYANOCOBALAMIN 100 MCG TABLET PO SCH (09:23)
[2020-07-05] MEDS: ISOSORBIDE MONONITRATE 30 MG TAB.SR.24H PO SCH (09:24)
[2020-07-05] MEDS: NIFEdipine XL 30 MG TABSR PO SCH (09:25)
[2020-07-05 09:33] VITALS: BP 118/62
[2020-07-05] MEDS: METOPROLOL TARTRATE 25 MG TABLET PO SCH (09:33)
--- NOTE | 2020-07-05 14:45 | NUR ---
1400 Called to Jen Ore[facility] spoke with PERCY Campa report given regarding patient be discharged to their facility. Rn informed about medications to continue at the facility and she verbalized understanding. 1445 Patient discharged via ambulance, patient denies SI/HI. no delusion . No a/v hallucination noted.ed to Jen Oreilly
[2020-08-04] MEDS ORDERED: HALOPERIDOL DECANOATE 50 MG/1 ML AMPUL IM SCH (18:00)
== END 2020-07-05 14:45 | DRG 885 ==
LOC: GPSOV3 20:44 → GPS 06-29 23:24
PROVIDERS: ADMIT Psychiatry & Neurology Psychiatry; ATTEND Nurse Practitioner Acute Care
DX: F29 Unspecified psychosis not due to a substance or known physiological condition (principal); N39.0 Urinary tract infection, site not specified; F25.9 Schizoaffective disorder, unspecified; E11.9 Type 2 diabetes mellitus without complications; E78.5 Hyperlipidemia, unspecified; F31.9 Bipolar disorder, unspecified; D64.9 Anemia, unspecified; I10 Essential (primary) hypertension; Z91.14 Patient's other noncompliance with medication regimen; Z73.6 Limitation of activities due to disability; R07.89 Other chest pain
CPT/HCPCS: 36415; 87086; J1630; J1631; J1650